=== PATIENT | male | born 1950 | race Caucasian/White ===

== ENCOUNTER → 2018-06-19 | Outpatient (CLI) | payer MEDICARE ==
--- NOTE | 2018-06-19 14:39 | MR ---
EXAMINATION TYPE: MR shoulder RT wo con DATE OF EXAM: 06/19/2018 COMPARISON: Outside right shoulder x-ray June 12, 2018 HISTORY: Right shoulder pain per order. Pain and muscle loss with difficulty raising overhead for 6+ weeks per patient. TECHNIQUE: Multiplanar, multisequence imaging of the right shoulder is performed without contrast. FINDINGS: Rotator Cuff: There is full-thickness retracted tear of the supraspinatus tendon to level of central acromion seen best paracoronal image 13. There is increased signal and thinning of the distal infrasp inatus tendon with partial articular surface tear involving posterior inferior fibers measuring 9 mm parasagittal image 21. There is suspected full-thickness tear of the subscapularis tendon which is th ickened and increased signal with wavy contour and distal portion is not well visualized. Rotator cuf f muscle bulk is fairly well-maintained. Acromioclavicular Joint: Moderate to severe AC joint arthropathy is present with narrowing as well as spurring and capsular hypertrophy. Inferior fat plane is lost. Glenohumeral Joint: There is slight high positioning of humeral head. There is moderate to severe yumiko rowing. There is moderate joint effusion. No significant spurring is present. Labrum: The superior labrum is not identified SLAP type tear is suspected. Biceps Tendon: The long head of biceps is not identified in normal location within bicipital groove. Anterior medial dislocation is felt present. Biceps anchor is not well seen. Intracapsular and extrac apsular portions are not well visualized. Bone marrow signal: No focal abnormal marrow signal is appreciated. Other: No additional significant abnormality is appreciated. IMPRESSION: 1. Full-thickness retracted tear of supraspinatus tendon. Presumed full-thickness retracted tear of s ubscapularis tendon with associated long head biceps tendon dislocation. SLAP tear labrum noted. Tend inosis and partial tear of distal infraspinatus tendon. Underlying moderate to advanced degenerative changes. Suspect underlying instability.
== END | disposition home or self-care (01) ==
LOC: RADMRIMAIN 13:35
PROVIDERS: ATTEND Orthopaedic Surgery
DX: S43.431A Superior glenoid labrum lesion of right shoulder, initial encounter (principal); M75.121 Complete rotator cuff tear or rupture of right shoulder, not specified as traumatic; M75.111 Incomplete rotator cuff tear or rupture of right shoulder, not specified as traumatic; M19.011 Primary osteoarthritis, right shoulder; M75.81 Other shoulder lesions, right shoulder

== ENCOUNTER 2018-07-25 05:42 | Day surgery (SDC) | payer MEDICARE ==
[2018-07-23 14:06] VITALS: BMI 32.3
--- NOTE | 2018-07-24 14:07 | HP ---
HISTORY AND PHYSICAL DATE OF SERVICE: 07/25/2018 Darren Love is a 68-year-old patient seen with progressive right shoulder pain. After treatment options were discussed with him, he elected to proceed right shoulder arthroscopy. Consent was obtained. Cardiac clearance was provided by Dr. Caicedo. PAST MEDICAL HISTORY: Hypertension, hyperlipidemia, ebw-uuasafa-vufecoejy diabetes, cardiovascular disease. PAST SURGICAL HISTORY: Cardiac catheterization with stent insertion. DAILY MEDICATIONS: 1. Amlodipine benazepril. 2. Aspirin. 3. Glipizide. 4. Januvia. 5. Metformin. 6. Metoprolol. 7. Pravastatin. ALLERGIES: None. SOCIAL HISTORY: Patient denies current tobacco use. PHYSICAL EVALUATION RIGHT SHOULDER: Flexion 160 degrees, abduction 150 degrees, external rotation is 30 degrees with significant weakness, tenderness along the anterior lateral acromion rotator cuff insertion site. Impingement positive 70 degrees. Drop-arm sign positive. Distal neurovascular exam intact. RADIOGRAPHS OF THE RIGHT SHOULDER: Revealed cystic changes of the tuberosity and acromioclavicular joint osteoarthritis. A right shoulder MRI revealed a retracted rotator cuff tear, acromioclavicular joint osteoarthritis, and glenohumeral joint osteoarthritis. IMPRESSION: 1. Right shoulder impingement with rotator cuff tear. 2. Right shoulder acromioclavicular joint osteoarthritis. 3. Hypertension. 4. Hyperlipidemia. 5. Ufs-vrthclu-wdlvoenno diabetes. PLAN: Right shoulder arthroscopy with subacromial decompression, probable arthroscopic rotator cuff repair, possible Dalila procedure and debridement. MMODL / IJN: [id number] /
[~2018-07-25 05:42] MED LIST: ceFAZolin IN SWFI 2 GM/20 ML SYRINGE IVP ONE
[2018-07-25] MEDS ORDERED: HYDROmorphone 1 MG/ML 1 ML SYRINGE IVP PRN (05:52)
[2018-07-25] MEDS ORDERED: ONDANSETRON 4 MG/2 ML VIAL IVP ONE (05:52)
[2018-07-25] MEDS ORDERED: DEXAMETHASONE SOD PHOSPHATE 10 MG/ML 1 ML VIAL IV ONE (05:52)
[2018-07-25] MEDS ORDERED: LIDOCAINE 1% 20 ML VIAL (10MG/ML) FOR IV START INTRADERMA PRN (05:52)
[2018-07-25] MEDS ORDERED: SCOPOLAMINE 1.5MG/72HR PATCH TRANSDERM ONE (05:52)
[2018-07-25] MEDS ORDERED: LACTATED RINGERS 1,000 ML IV SCH (05:52)
[2018-07-25 06:21] LABS: Glucose,Whole Blood 221 mg/dL (75-99)
[2018-07-25] MEDS ORDERED: INSULIN ASPART 100 UNIT/ML 1 ML 10 ML VIAL SQ ONE ×3 (06:44→12:12)
[2018-07-25] MEDS ORDERED: MIDAZOLAM (PF) 2 MG/2 ML VIAL IV ONE (06:49)
[2018-07-25] MEDS ORDERED: fentaNYL (PF) 50 MCG/ML 2 ML AMP IV ONE (06:49)
[2018-07-25] MEDS ORDERED: ROPIVACAINE 5 MG/ML 30 ML VIAL ONE (07:30)
[2018-07-25] MEDS ORDERED: SUCCINYLCHOLINE CHLORIDE VIAL 200 MG/10 ML VIAL IV ONE (07:30)
[2018-07-25] MEDS ORDERED: LIDOCAINE 1% INJ 10MG/ML (20 ML MDV) ONE (07:30)
[2018-07-25] MEDS ORDERED: fentaNYL (PF) 50 MCG/ML 2 ML AMP ONE (07:30)
[2018-07-25] MEDS ORDERED: PHENYLEPHRINE-0.9% NACL SYG 1 MG/10 ML SYRINGE ONE (07:30)
[2018-07-25] MEDS ORDERED: ePHEDrine SULFATE/0.9% NACL/PF 50 MG/5 ML SYRINGE IV ONE (07:30)
[2018-07-25] MEDS ORDERED: PROPOFOL 10 MG/ML 20 ML VIAL IV ONE (07:30)
[2018-07-25] MEDS ORDERED: LACTATED RINGERS 1,000 ML IV ONE (07:34)
--- NOTE | 2018-07-25 09:55 | P.ONQ ---
Anesthesiology Proc Note - PNB - Peripheral Nerve Block Performed Right Interscalene Single Procedure Start Time: 06:48 Indication: Acute Post-Operative Pain, Analgesia Specifically requested for management of pain by DrChelsie: Bennie Blackburn Sedation Type: Sedate with meaningful contact maintained Preparation: Sterile Prep Position: Supine Catheter: None Needle Types: Other (see comment) (Pajunk) Needle Size: 50mm (2") Needle Gauge: 21 Technique: Ultrasound Injectate: 0.5% Ropivacaine (see comment for volume) (25cc) Adjunct: Epinephrine (see comment for dilution ratio) Blood Aspirated: No Pain Paresthesia on Injection Noted: No Resistance on Injection: Normal Events: Uneventful and Well Tolerated
--- NOTE | 2018-07-25 09:59 | P.OP ---
Date of Procedure: 07/25/18 Preoperative Diagnosis: Right shoulder impingement Postoperative Diagnosis: 1. Right shoulder rotator cuff tear 2. Right shoulder impingement 3. Right shoulder acromioclavicular joint osteoarthritis Procedure(s) Performed: 1. Right shoulder arthroscopic rotator cuff repair 2. Right shoulder arthroscopic subacromial decompression 3. Right shoulder arthroscopic Dalila procedure Implants: 74.75 Arthrex swivel lock anchors Anesthesia: GETA, regional (Interscalene block) Surgeon: Bennie Blackburn Upholsterer Helper #1: Chetan Boo Estimated Blood Loss (ml): 10 Pathology: none sent Condition: stable Disposition: PACU Indications for Procedure: 68-year-old patient seen with progressive right shoulder pain. After treatment options were discussed with him, he elected to proceed with arthroscopy. Operative Findings: see description of procedure Description of Procedure: Patient underwent an interscalene block by department of anesthesia. The patient was then taken to the operative suite. The patient underwent a general anesthetic by the department of anesthesia. The patient was placed into a lateral position and secured. There was appropriate padding of the bony prominence. Right shoulder was then prepped and draped in normal sterile orthopedic fashion. We placed the extremity in 10 pounds of longitudinal traction. A posterior incision was now made for a posterior working portal site. The trocar and cannula were inserted into the glenohumeral joint. Arthroscopy was initiated. Spinal needle was now inserted anteriorly, to ascertain the anterior working portal site. An incision was now made in that area, a trocar was inserted followed by a probe. There was an obvious massive rotator cuff tear visualized from glenohumeral side. There is evidence for previous biceps tendon tear. There were grade 2 chondromalacia changes of the glenohumeral joint with no osteochondral tears present. The labrum appeared frayed but no significant tear. Instruments now removed from the glenohumeral joint. Utilizing the posterior working portal site, the trocar and cannula were inserted into the subacromial space. Arthroscopy initiated. I made an incision 2 fingerbreadths lateral to the acromion. I introduced my trocar followed by my ArthroCare ablator. I now began ablating thick subacromial bursal tissue, which exposed the undersurface of the anterior acromion. There was diminished subacromial space. There was a very prominent anterior acromion. A motorized bur was introduced and a subacromial decompression was performed. I also excised some osteophytes off the inferior aspect of the distal clavicle. The AC joint was visualized and noted to be fairly arthritic. The motorized bur was introduced in the anterior portal site and a Dalila procedure was performed without difficulty, decompressing the AC joint nicely. I turned my attention to the rotator cuff. There was a 33.5 cm rotator cuff tear. It was significantly retracted. I debrided the margins getting down to stable tendon tissue. I did do a significant released to finally the tendon over the footprint. I introduced my motorized bur and abraded the footprint area, getting some petechial bleeding. I now made an accessory portal site off the lateral aspect of the acromion. I punched 3 holes medial for medial row fixation with the assistance of Steven DELUNA carefully tapping the punch with a mallet as I held the punch and the camera. I now introduced both anchors into the pre- punched holes and Steven DELUNA tapped them with the mallet as I held anchors and the camera. Steven DELUNA now screwed the anchors in place a while I held the anchor guide and camera. All 12 limbs of suture were now passed through good bites of rotator cuff tendon. I now punched 3 holes for lateral row fixation again I held the punch and camera while Steven DELUNA used a mallet to tap in the punch. We now passed sutures through both anchors and individually I introduced the anchors into the pre-punch holes I held the anchor guide in position with one hand holding the camera with the other hand while Steven DELUNA tensioned the sutures and screwed in the anchors one at a time. All residual suture limbs were now clipped. I had to significant dogears. I passed sutures through both of those introduced one additional lateral anchor which compressed that down along the footprint nicely. We had good compression of the tendon along the entire footprint. I injected 1 mL Renue intra-articular Instruments now removed from the portal sites. All portal sites were approximated with nylon suture. Sterile dressings were applied followed by a shoulder immobilizer. Chetan DELUNA assisted in this complex case. The patient was awakened, transferred to a bed, and taken to recovery in stable condition.
[2018-07-25 10:10] VITALS: TEMP 96.8
[2018-07-25 10:31] LABS: Glucose,Whole Blood 299 mg/dL (75-99)
[2018-07-25 11:04] VITALS: RESP 16
[2018-07-25 11:51] VITALS: BP 138/62; PULSE 85
[2018-07-25 12:06] LABS: Glucose,Whole Blood 304 mg/dL (75-99)
--- NOTE | 2018-07-28 13:44 | CDI ---
Outpatient Documentation Clarification Form Date: 07/28/18 CDS/Automatic Stacker Name: Lauren Sin Phone: If any questions, call Michelle Hadley Wire Bender Hand at [phone] Patient Name: Darren Love Admit Date: 07/25/18 Discharge Date: 07/25/18 ATTENTION: The [facility] Coding Staff appreciate your assistance in clarifying documentation. Please respond to the clarification below the line at the bottom and electronically sign. The [facility] Coding staff will review the response and follow-up if needed. Please note: Queries are made part of the Legal Health Record. If you have any questions, please contact the Wire Bender Hand. Dear Dr. Blackburn, The H&P notes Uncontrolled type 2 diabetes mellitus. Does Uncontrolled mean A) Hyperglycemia, or B) Hypoglycemia? Thank you for your kind consideration. Hyperglycemia MTDD
== END 2018-07-25 12:35 | disposition home or self-care (01) ==
LOC: OR 05:42
PROVIDERS: ATTEND Orthopaedic Surgery
DX: M75.101 Unspecified rotator cuff tear or rupture of right shoulder, not specified as traumatic (principal); M75.41 Impingement syndrome of right shoulder; M19.011 Primary osteoarthritis, right shoulder; M94.211 Chondromalacia, right shoulder; M25.711 Osteophyte, right shoulder; E11.65 Type 2 diabetes mellitus with hyperglycemia; I25.10 Atherosclerotic heart disease of native coronary artery without angina pectoris; I10 Essential (primary) hypertension; G47.00 Insomnia, unspecified; E78.5 Hyperlipidemia, unspecified; I25.2 Old myocardial infarction; Z95.820 Peripheral vascular angioplasty status with implants and grafts; Z79.84 Long term (current) use of oral hypoglycemic drugs; Z79.82 Long term (current) use of aspirin; Z79.899 Other long term (current) drug therapy; Z91.013 Allergy to seafood; Z87.891 Personal history of nicotine dependence
CPT/HCPCS: 29824; 29827; 29826; 64415; C1713 ×3; C1765; J0330; J1100; J2405; J2001; J3010; J2795; J2370; J2704; J0690; J2250

== ENCOUNTER → 2019-06-12 | Outpatient (CLI) | payer MEDICARE ==
--- NOTE | 2019-06-12 13:13 | XR ---
EXAMINATION TYPE: XR ribs bilateral DATE OF EXAM: 06/12/2019 COMPARISON: None HISTORY: Pain upper ribs TECHNIQUE: Bilateral ribs examining 2 projections each FINDINGS: No acute fractures are evident. No pneumothorax is evident. These images there appears to b e some plate atelectasis at the right base. IMPRESSION: 1. No acute osseous abnormality bilateral ribs. 2. Follow up exams can be performed 7-10 days from acute trauma for continued pain.
--- NOTE | 2019-06-12 13:16 | XR ---
EXAMINATION TYPE: XR chest 2V DATE OF EXAM: 06/12/2019 COMPARISON: Rib study same date INDICATION: Fall, pain TECHNIQUE: Frontal and lateral views of the chest are obtained. FINDINGS: The heart size is normal. The pulmonary vasculature is normal. Mild plate atelectasis may be at the right base. Lungs are otherwise clear. No pneumothorax is eviden t.. IMPRESSION: 1. Mild right lower lobe plate atelectasis.
== END | disposition home or self-care (01) ==
LOC: RADXRMAIN 11:39
PROVIDERS: ATTEND Family Medicine
DX: R07.81 Pleurodynia (principal); J98.11 Atelectasis
CPT/HCPCS: 71046; 71110

== ENCOUNTER 2021-08-29 12:54 | Emergency (ER) | payer MEDICARE ==
[2021-08-29 13:19] VITALS: TEMP 98.3
[2021-08-29 14:43] VITALS: RESP 16
[2021-08-29] MEDS ORDERED: BAMLANIVIMAB (EUA) 700 MG, ETESEVIMAB (EUA) 1,400 MG in SODIUM CHLORIDE 0.9% 100 ML IVPB ONE (15:00)
[2021-08-29] MEDS ORDERED: SODIUM CHLORIDE 0.9% 50 ML IVPB ONE (15:30)
--- NOTE | 2021-08-29 15:40 | ED ---
General Adult HPI - General Chief complaint: ENT Stated complaint: Covid+/BAM Source: patient Mode of arrival: ambulatory Limitations: no limitations - History of Present Illness Initial comments: Darren meza 71-year-old gentleman presents the emergency Department today with complaint of congestion body aches and myalgias minimally productive cough. Denies any chest pain. Patient believes he was likely exposed to COVID-19 earlier in the week when attending a high school wrestling match. Patient is fully vaccinated he has had his booster shot. - Related Data Home Medications Medication Instructions Recorded Confirmed Aspirin [Aspirin EC] 650 mg PO DAILY PRN 07/23/18 07/25/18 Gabapentin [Neurontin] 100 mg PO BID 07/23/18 07/23/18 Metoprolol Tartrate [Lopressor] 25 mg PO BID 07/23/18 07/23/18 Niacin 500 mg PO DAILY 07/23/18 07/25/18 Pravastatin Sodium [Pravachol] 40 mg PO DAILY 07/23/18 07/25/18 Zolpidem [Ambien] 10 mg PO HS 07/23/18 07/25/18 amLODIPine BESYLATE/BENAZEPRIL 1 cap PO HS 07/23/18 07/25/18 [amLODIPine BESYLATE/BENAZEPRIL 10-40 mg] glipiZIDE [Glucotrol] 10 mg PO AC-BID 07/23/18 07/25/18 metFORMIN HCL [metFORMIN HCL ER] 1,000 mg PO BID 07/23/18 07/25/18 sitaGLIPtin [Januvia] 100 mg PO DAILY 07/23/18 07/25/18 Previous Rx's Medication Instructions Recorded HYDROcodone/APAP 7.5-325MG [[place] 1 each PO Q6HR PRN #28 tab 07/25/18 7.5] Allergies Allergy/AdvReac Type Severity Reaction Status Date / Time Fish Containing Products Allergy Anaphylaxis Verified 08/29/21 13:19 [Fish] Review of Systems ROS Statement: Those systems with pertinent positive or pertinent negative responses have been documented in the HPI. ROS Other: All systems not noted in ROS Statement are negative. Past Medical History Past Medical History: Coronary Artery Disease (CAD), GERD/Reflux, Hyperlipidemia, Hypertension, Myocardial Infarction (PR) Last Myocardial Infarction Date:: 2009 History of Any Multi-Drug Resistant Organisms: None Reported Past Surgical History: Adenoidectomy, Heart Catheterization With Stent, Tonsillectomy Additional Past Surgical History / Comment(s): cardiac stents x2, colonoscopy Past Anesthesia/Blood Transfusion Reactions: No Reported Reaction Date of Last Stent Placement:: 2009 Past Psychological History: No Psychological Hx Reported Smoking Status: Former smoker Past Alcohol Use History: Rare Past Drug Use History: None Reported - Past Family History Mother Family Medical History: Cancer Additional Family Medical History / Comment(s): multiple myeloma Father Family Medical History: Myocardial Infarction (PR) General Exam - General Exam Comments Initial Comments: Physical Exam GENERAL: Patient is well-developed and well-nourished. Patient is nontoxic and well-hydrated and is in no distress. HENT: Normocephalic, Atraumatic. EYES: PERRL, EOMI PULMONARY: Unlabored respirations. CARDIOVASCULAR: Warm and well perfused extremities ABDOMEN: Non-distended SKIN: No rashes or bruising : Deferred NEUROLOGIC: Alert and oriented Normal speech Normal gait MUSCULOSKELETAL: Moving all extremities with no apparent injury PSYCHIATRIC: No SI/HI Limitations: no limitations Course Vital Signs 08/29/21 08/29/21 13:13 14:42 Temperature 98.3 F Pulse Rate 51 L Respiratory 18 16 Rate Blood Pressure 145/68 O2 Sat by Pulse 96 Oximetry Medical Decision Making - Medical Decision Making Patient was seen and evaluated history is obtained from the patient, concern for COVID-19, she has no hypoxia tachycardia or fever on arrival, given the patient's advanced age multiple medical comorbidities he is a candidate for monoclonal antibody infusion which he consents to. Patient received the monoclonal antibodies without reaction stable for plan for discharge home for continued supportive care. - Lab Data Lab Results 08/29/21 Range/Units 13:29 Coronavirus (PCR) Detected A (Not Detectd) Disposition Clinical Impression: COVID-19 Disposition: HOME SELF-CARE Condition: Stable Additional Instructions: You have been diagnosed with COVID-19, at this time you appear stable to continue monitoring symptoms at home. I recommended you obtain a pulse oximeter, monitor your oxygen level and heart rate Return to the emergency department if your pulse ox remains below 90% or your heart rate is elevated Support your immune system by taking vitamin C, vitamin D and Zinc supplements (such as Emergen-C) or eating foods with these vitamins Stay hydrated as this will help reduce her fever and body aches Alternate Tylenol and Motrin for treatment of fever and body aches Is patient prescribed a controlled substance at d/c from ED?: No Referrals: mD Schwartz MD [Primary Care Provider] - 1-2 days
[2021-08-29 16:22] VITALS: BP 140/78; PULSE 58
== END 2021-08-29 16:00 | disposition home or self-care (01) ==
LOC: EC 12:54
DX: U07.1 COVID-19 (principal); I25.10 Atherosclerotic heart disease of native coronary artery without angina pectoris; K21.9 Gastro-esophageal reflux disease without esophagitis; E78.5 Hyperlipidemia, unspecified; I10 Essential (primary) hypertension; I25.2 Old myocardial infarction; Z79.82 Long term (current) use of aspirin; Z79.84 Long term (current) use of oral hypoglycemic drugs; Z87.891 Personal history of nicotine dependence
CPT/HCPCS: 99283; M0245; 87635

== ENCOUNTER → 2022-05-04 | Outpatient (CLI) | payer MEDICARE ==
--- NOTE | 2022-05-04 16:53 | MR ---
EXAMINATION TYPE: MR knee RT wo con DATE OF EXAM: 05/04/2022 COMPARISON: None. HISTORY: R knee pain for 6 months. TECHNIQUE: Multiplanar, multisequence imaging of the right knee is performed without IV contrast. FINDINGS: MEDIAL MENISCUS: Oblique signal posterior horn extending to inferior articular surface near central b josué. LATERAL MENISCUS: Oblique signal posterior horn extends to inferior articular surface sagittal image 26.. CRUCIATE LIGAMENTS: The anterior and posterior cruciate ligaments are intact and unremarkable. COLLATERAL LIGAMENTS: The medial collateral ligament and lateral collateral ligament complex are inta ct and unremarkable. EXTENSOR MECHANISM: Visualized quadriceps and patellar tendons are intact. EFFUSION: There is moderate size suprapatellar joint effusion. POPLITEAL CYST: Small size popliteal/pelayo cyst. TRICOMPARTMENT SPACES: Moderate tricompartment joint space loss greatest patellofemoral compartment w ith mild tricompartment spurring CARTILAGE: Chondromalacia patella with full-thickness cartilaginous loss along posterior patellar debora e. Some cartilaginous loss distal lateral femoral condyle coronal image 19 BONE MARROW SIGNAL: Series of heterogeneous increased T2 signal posterior patellar pole. Heterogeneou s diminished T1 and increased T2 signal involving distal femoral diaphysis medullary region. OTHER: No additional significant abnormality is appreciated. IMPRESSION: 1. Full-thickness tear posterior horn medial meniscus. 2. Full-thickness tear posterior horn lateral meniscus. 3. Large-sized suprapatellar joint effusion. 4. Tricompartment degenerative changes with moderate to advanced findings in the patellofemoral anila rtment noted as detailed above. 5. Moderate size suprapatellar joint effusion. 6. Small sized popliteal cyst. 7. Osseous lesion distal femoral diaphysis should be correlated with plain films but favors nonaggres sive etiology
== END | disposition home or self-care (01) ==
LOC: RADMRIMAIN 10:58
PROVIDERS: ATTEND Orthopaedic Surgery
DX: M23.221 Derangement of posterior horn of medial meniscus due to old tear or injury, right knee (principal); M23.251 Derangement of posterior horn of lateral meniscus due to old tear or injury, right knee; M17.11 Unilateral primary osteoarthritis, right knee

== ENCOUNTER → 2022-06-21 | Outpatient (CLI) | payer MEDICARE ==
--- NOTE | 2022-06-22 06:42 | MR ---
EXAMINATION TYPE: MR knee LT wo con DATE OF EXAM: 06/21/2022 COMPARISON: Outside left knee x-ray April 19, 2022 HISTORY: L knee pain for one year. TECHNIQUE: Multiplanar, multisequence imaging of the left knee is performed without IV contrast. FINDINGS: MEDIAL MENISCUS: Horizontal increased signal posterior horn with likely oblique component extending t o articular surface sagittal image 28. LATERAL MENISCUS: Faint oblique signal posterior horn extends to inferior articular surface sagittal image 9. CRUCIATE LIGAMENTS: The anterior and posterior cruciate ligaments are intact and unremarkable. COLLATERAL LIGAMENTS: The medial collateral ligament and lateral collateral ligament complex are inta ct and unremarkable. EXTENSOR MECHANISM: Visualized quadriceps and patellar tendons are intact. EFFUSION: There is small to moderate size suprapatellar joint effusion. POPLITEAL CYST: No popliteal/pelayo cyst. In the popliteal region there is a 4.0 x 3.3 x 3.5 cm ovoid lesion with rim T1 and T2 hypointensity along the course of the popliteal artery consistent with ane urysm. There is corresponds to the rim calcified lesion on plain film correlation. Local mass effect with mild adjacent surrounding edema. TRICOMPARTMENT SPACES: Mild to moderate tricompartment joint space loss with minimal spurring. CARTILAGE: Chondral malacia patella with loss of articular cartilage along the posterior patellar debora e. Cartilaginous loss medial tibiofemoral compartment. BONE MARROW SIGNAL: No focal abnormal marrow signal is appreciated. OTHER: Thin-walled cystic change near the femoral head. IMPRESSION: 1. Tricompartment degenerative changes fairly moderate in appearance medial tibiofemoral patellofemor al compartments as detailed above. 2. Small to moderate-sized suprapatellar joint effusion. 3. Oblique full-thickness tear posterior horn lateral meniscus. 4. Subtle full-thickness tear posterior horn medial meniscus. 5. 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 Findings vascular craig rgical evaluation.
== END | disposition home or self-care (01) ==
LOC: RADMRIMAIN 11:07
PROVIDERS: ATTEND Orthopaedic Surgery
DX: M17.12 Unilateral primary osteoarthritis, left knee (principal); M23.322 Other meniscus derangements, posterior horn of medial meniscus, left knee; M23.352 Other meniscus derangements, posterior horn of lateral meniscus, left knee; M25.462 Effusion, left knee

== ENCOUNTER → 2024-10-07 | Outpatient (CLI) | payer MEDICARE ==
--- NOTE | 2024-10-07 12:12 | MR ---
EXAMINATION TYPE: MR cspine/lspine wo con DATE OF EXAM: 10/07/2024 COMPARISON: NONE HISTORY: Weakness, BUE and into buttocks. TECHNIQUE: Multiplanar, multisequence imaging of the cervical and lumbar spine performed without IV c ontrast. FINDINGS: C-SPINE: Sagittal images of the cervical spine show the craniocervical junction to appear within normal limits . The cervical and upper thoracic spinal cord is normal in course, caliber, and signal. There is gra de 1 retrolisthesis C5 on C6 with moderate disc space narrowing. The vertebral body heights are norm al. The bone marrow signal intensity is within normal limits. Axial images show C2-C3 to appear within normal limits. Axial images at C3-C4 show uncovertebral facet degenerative change causing moderate right-sided neura l foraminal narrowing. Axial images at C4-C5 level show uncovertebral facet degenerative change causing [id number] rig ht-sided neural foraminal narrowing. Axial images at C5-C6 levels with spondylolisthesis with broad-based posterior disc protrusion effaci ng anterior thecal sac and causing moderate to severe bilateral neural foraminal narrowing. Axial images at C6-C7 and C7-T1 levels appear within normal limits. IMPRESSION: Spondylolisthesis and degenerative change at C5-C6 level is noted as detailed above. L-SPINE: Sagittal images of the lumbar spine show vertebral body heights to appear satisfactory. There is grad e 1 retrolisthesis of L3 on L4 and slight grade 1 anterolisthesis of L4 on L5. Multilevel disc desicc ation. Multilevel ptzh-vm-grlspbah disc space narrowing with sparing of the L5-S1 level. The conus me dullaris is normal in position and signal and mid to inferior L1 level. Heterogeneous Modic type I en dplate changes at L3-L4 level. Some scattered Modic type II endplate changes are seen. Axial images show T12-L1 and L1-L2 level to appear within normal limits. Axial images at L2-L3 level shows moderate broad-based disc bulge effaces the anterior thecal sac and mild facet arthropathy bilaterally with slight effacement of the right posterior lateral thecal sac. Bilateral neural foramina remain patent. Axial images at L3-L4 levels with spondylolisthesis and mild broad-based disc bulge effacing the ante rior thecal sac and mild facet arthropathy bilaterally. Bilateral neural foramina are patent. Axial images at L4-L5 level shows spondylolisthesis and moderate broad-based posterior disc protrusio n effaces the anterior thecal sac along with moderate facet arthropathy and ligament flavum hypertrop hy effacing the posterior lateral thecal sac greater on the left. There is moderate right-sided anter ior inferior neural foraminal narrowing. Axial images at L5-S1 level shows advanced facet arthropathy bilaterally. There is mild left-sided ne ural foraminal narrowing. Spinal canal is preserved. Paraspinal muscle bulk is maintained. IMPRESSION: Multilevel spondylolisthesis and degenerative change in the mid to lower lumbar spine as detailed above. [facility], , 10/07/2024 12:09 PM
== END | disposition home or self-care (01) ==
LOC: RADMRIMAIN 10:45
PROVIDERS: ATTEND Psychiatry & Neurology Neurology
DX: M48.02 Spinal stenosis, cervical region (principal); M47.816 Spondylosis without myelopathy or radiculopathy, lumbar region; M51.26 Other intervertebral disc displacement, lumbar region; R53.1 Weakness
CPT/HCPCS: 72141; 72148

== ENCOUNTER → 2024-10-29 | Outpatient (CLI) | payer MEDICARE ==
--- NOTE | 2024-10-29 12:41 | MR ---
EXAMINATION TYPE: MR thoracic spine wo con DATE OF EXAM: 10/29/2024 12:21 PM COMPARISON: None. 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 IV Contrast: (None, if empty) FINDINGS: Alignment: Alignment is within normal limits. Vertebral bodies have preserved heights. Spinal cord: Spinal cord is within normal limits for signal. Discs: Intervertebral disc signal is maintained. No evidence of significant spinal canal or neural fo raminal stenosis. There is no evidence of extradural defects or central spinal canal narrowing at any thoracic vertebral body level. Mild bulging at T6-T7 with disc height loss. No significant spinal ca nal stenosis. Mild bony edema T6-T7 Osseous structures: Mild bony edema at the adjoining endplates of T6-T7 with osteophyte.. Multilevel osteophyte formation and facet joint arthropathy. Scattered disc space narrowing. Right renal simple appearing high T2 signal cyst. Right adrenal gland has a T2 signal oval adrenal my elolipoma. IMPRESSION: 1. Mild to moderate degeneration changes of the spine, findings worse at T6-T7 with mild disc bulgin g, no significant canal stenosis or significant neural foraminal stenosis. Mild bony reactive edema a t this level. No other areas of significant spinal canal or neural foraminal stenosis identified. 2. Right adrenal myelolipoma. 3. The right renal simple appearing cyst. [facility], , 10/29/2024 12:39 PM
== END | disposition home or self-care (01) ==
LOC: RADMRIMAIN 11:35
PROVIDERS: ATTEND Psychiatry & Neurology Neurology
DX: M51.04 Intervertebral disc disorders with myelopathy, thoracic region (principal); D17.79 Benign lipomatous neoplasm of other sites; M47.814 Spondylosis without myelopathy or radiculopathy, thoracic region; M51.34 Other intervertebral disc degeneration, thoracic region; N28.1 Cyst of kidney, acquired
CPT/HCPCS: 72146